=== PATIENT | female | born 1950 | race American Indian/Alaskan Native ===

== ENCOUNTER 2017-11-21 08:44 | Emergency (ER) | payer MEDICARE, BC ==
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
[2017-11-21 11:25] VITALS: O2SAT 100
[2017-11-21 12:32] VITALS: BP 122/72; PULSE 70; RESP 18; TEMP 98
== END 2017-11-21 12:42 | disposition home or self-care (01) ==
LOC: C.ER 08:44
DX: R55 Syncope and collapse (principal); I10 Essential (primary) hypertension

== ENCOUNTER → 2017-11-30 18:32 | Emergency (ER) | payer MEDICARE, BC ==
[2017-11-30 18:41] VITALS: BMI 25.0
== END | disposition left against medical advice (07) ==
LOC: C.ER 18:32
DX: Z02.89 Encounter for other administrative examinations (principal); R41.82 Altered mental status, unspecified